=== PATIENT | male | born 1960 | race Caucasian/White ===

== ENCOUNTER 2021-09-19 05:35 | Emergency (ER) | payer OTHER ==
--- OUTSIDE RECORDS SUMMARY | 2021-09-19 05:37 | XMS REPORT | Continuity of Care Document ---
:1960 Author Organization [facility] t Address [address] [place] [address] Care Team Providers Name Role Phone Orestes Fernandes Attending Clinician Unavailable Problems This patient has no known problems. Allergies, Adverse Reactions, Alerts This patient has no known allergies or adverse reactions. Medications Ordered Filled Start Stop Current Ordering Indication Dosage Frequency Signature Comments Components Source Medication Medication Date Date Medication? Clinician (SIG) Name Name Metoprolol Metoprolol 2020-0 Yes Na Fernandes 1 tablet Common Tartrate Tartrate 7-31 with food Sp yesika 00:00: - [facility] Trazodone Trazodone 2018- Yes Na Fernandes 1 tablet Common HCl HCl 2-13 at bedtime Spirit 00:00: [facility] Lisinopril Lisinopril Yes Na Fernandes 1 tablet Common Spirit - [facility] Yes Na Fernandes take one Co mmon -1 Spirit tablet(s) - [facility] Chantix Chantix Yes Na Fernandes as Common Starting Starting directed Spi rit Month Jose Month Jose - [facility] Yes Na Fernandes take one Co mmon -1 Spirit tablet(s) - [facility] Citalopram Citalopram Yes Na Fernandes 1 tablet Common Hydrobromid Hydrobromid S pirit e e - [facility] Lisinopril Lisinopril Yes Na Fernandes 1 tablet Common Spirit - [facility] Procedures This patient has no known procedures. Encounters Start End Encounter Admission Attending Care Care Encounter Source Date/Time Date/Time Type Type Clinicians Facility Department ID 2021-04-25 Outpatient Fernandes, Na STLMLC STLMLC [id number] 2 Common 14:31:04 [facility] 2021-04-25 Outpatient Fernandes, Na STLMLC STLMLC [id number] 2 Common 13:37:39 [id number] [facility] 2021-04-25 Outpatient Fernandes, Na STLMLC STLMLC [id number] 2 Common 12:37:00 [id number] [facility] 2021-04-25 Outpatient Fernandes, Na STLMLC STLMLC [id number] 2 Common 12:36:25 [id number] [facility] 2021-04-25 Outpatient Fernandes, Na STLMLC STLMLC [id number] 2 Common 12:35:33 [id number] [facility] 2021-04-25 Outpatient Fernandes, Na STLMLC STLMLC [id number] 2 Common 12:03:58 [id number] [facility] 2021-04-25 Outpatient Fernandes, Na STLMLC STLMLC [id number] 2 Common 11:59:40 [id number] [facility] 2021-04-25 Outpatient Fernandes, Na STLMLC STLMLC [id number] 2 Common 11:33:36 [id number] [facility] 2021-04-25 Outpatient Fernandes, Na STLMLC STLMLC [id number] 2 Common 11:18:19 [id number] [facility] 2021-03-22 2021-03-22 ambulatory STLMLC STLMLC [id number] Common 00:00:00 00:00:00 [facility] 2021-03-22 2021-03-22 ambulatory STLMLC STLMLC [id number] Common 00:00:00 00:00:00 [facility] 2020-12-08 2020-12-08 Outpatient STLMLC STLMLC [id number] Common 00:00:00 00:00:00 [facility] 2020-11-08 2020-11-08 Outpatient STLMLC STLMLC [id number] Common 00:00:00 00:00:00 [facility] 2020-11-07 2020-11-07 Outpatient STLMLC STLMLC [id number] Common 00:00:00 00:00:00 [facility] 2020-09-01 2020-09-01 Outpatient STLMLC STLMLC [id number] Common 00:00:00 00:00:00 [facility] 2020-06-02 2020-06-02 Outpatient STLMLC STLMLC [id number] Common 00:00:00 00:00:00 [facility] 2020-02-08 2020-02-08 Outpatient STLMLC STLMLC [id number] Common 00:00:00 00:00:00 [facility] 2019-10-29 2019-10-29 [id number] Common 09:40:00 09:40:[address] [facility] 2019-09-29 2019-09-29 [facility] [id number] Common 12:01:00 12:01:[address] [facility] 2019-08-27 2019-08-27 [facility] [id number] Common 16:24:00 16:24:[address] [facility] 2019-07-26 2019-07-26 [facility] [id number] Common 14:22:00 14:22:[address] [facility] 2019-07-16 2019-07-16 [facility] [id number] Common 10:00:00 10:00:[address] [facility] 2019-06-17 2019-06-17 [facility] [id number] Common 11:50:00 11:50:[address] [facility] 2018-12-23 2018-12-23 [facility] [id number] Common 08:00:00 08:00:[address] [facility] 2018-06-05 2018-06-05 [facility] [id number] Common 11:15:00 11:15:[address] [facility] 2018-03-12 2018-03-12 [facility] [id number] Common 15:15:00 15:15:[address] [facility] Results This patient has no known results.
[2021-09-19 06:21] LABS: Absolute Lymphocytes (CBC) 1.1 K/uL (0.7-4.9); Hematocrit 43.8 % (39.6-49.0); Lymphocytes % 20.6 % (15.3-44.8); RBC Red Blood Cell Count 5.15 M/uL (4.33-5.43)
[2021-09-19] MEDS ORDERED: NA CHLORIDE 0.9% 500 ML ONE (06:35)
[2021-09-19 06:39] LABS: Albumin 3.4 g/dL (3.4-5.0); Bilirubin Total 0.4 mg/dL (0.2-1.0)
--- NOTE | 2021-09-19 07:29 | RAD REPORT ---
EXAM DESCRIPTION: CT - Stone Protocol - 09/19/2021 6:55 am CLINICAL HISTORY: Abdominal pain. COMPARISON: None. TECHNIQUE: Computed axial tomography of the abdomen pelvis was obtained without oral or IV contrast. Lack of IV and oral contrast limits evaluation of solid organs, bowel, and vessels. Coronal reformat dylan images were obtained and reviewed. All CT scans are performed using dose optimization technique as appropriate and may include automated exposure control or mA/KV adjustment according to patient size. FINDINGS: A renal calculus is not seen. An ureteral calculus is not noted. A bladder calculus is not present. Small low-density area within the right kidney is nonspecific but probably cyst. Small low-density area within the liver is too small to characterize by CT criteria. Spleen, pancreas and adrenals grossly normal. There is no evidence of diverticulitis. Small left inguinal hernia. 8 x 1 millimeter linear radiopaque structure within ileum. No free air. No abscess IMPRESSION: Negative for a genitourinary calculus 8 x 1 millimeter linear radiopaque structure within the ileum may represent a foreign body.
--- NOTE | 2021-09-19 08:28 | ER ---
Nurse's Notes [facility] Name: Juan Francisco Rios Age: 61 yrs Sex: Male : 1960 Arrival Date: 09/19/2021 Time: 05:36 Bed 5 Private MD: Mirna Fernandes Diagnosis: Abdominal pain, unspecified;Foreign body in small intestine, initial encounter Presentation: 09/19 05:56 Chief complaint: Patient states: RLQ that start yesterday, pain improved and pt was as6 able to sleep, pt woke up in the night with same pain and it has gotten worse. Coronavirus screen: At this time, the client does not indicate any symptoms associated with coronavirus-19. Ebola Screen: No symptoms or risks identified at this time. Initial Sepsis Screen: Does the patient meet any 2 criteria? No. Patient's initial sepsis screen is negative. Does the patient have a suspected source of infection? No. Patient's initial sepsis screen is negative. Risk Assessment: Do you want to hurt yourself or someone else? Patient reports no desire to harm self or others. Onset of symptoms was September 18, 2021 at 17:00. 05:56 Method Of Arrival: Wheelchair as6 05:56 Acuity: NAT 3 as6 Triage Assessment: 06:17 General: Appears in no apparent distress. Behavior is calm, cooperative, appropriate vc1 for age. Pain: Complains of pain in abdomen Pain does not radiate. Pain currently is 0 out of 10 on a pain scale. at worst was 10 out of 10 on a pain scale. Quality of pain is described as sharp, stabbing. Neuro: Level of Consciousness is awake, alert, obeys commands, Oriented to person, place, time, situation, Appropriate for age. Cardiovascular: Capillary refill < 3 seconds Patient's skin is warm and dry. Respiratory: Airway is patent Respiratory effort is even, unlabored, Respiratory pattern is regular, symmetrical. GI: Abdomen is round non-distended. : Denies pain with urination. Derm: No deficits noted. Musculoskeletal: No deficits noted. Historical: - Allergies: 05:59 Zoloft; as6 - Home Meds: 05:59 lisinopril Oral [Active]; Catapres Oral [Active]; as6 - PMHx: 05:59 Hypertensive disorder; as6 - PSHx: 05:59 Appendectomy; eye; ear; as6 - Immunization history:: Client reports receiving the 2nd dose of the Covid vaccine, moderna. - Social history:: Smoking status: Patient/guardian denies using tobacco, but has a distant history of tobacco abuse. Screenin:17 Abuse screen: Denies threats or abuse. Nutritional screening: No deficits noted. vc1 Tuberculosis screening: No symptoms or risk factors identified. Fall Risk None identified. Assessment: 06:18 Reassessment: See triage assessment. vc1 06:51 GI: Bowel sounds present X 4 quads. Abd is soft and non tender. vc1 07:15 Reassessment: Patient is alert, oriented x 3, equal unlabored respirations, skin aa5 warm/dry/pink. Patient denies pain at this time. Awaiting radiology results . 07:15 Reassessment: Sitting up in bed watching TV, denies any complaints. Notified of wait aa5 time. . 09:35 Reassessment: Patient is alert, oriented x 3, equal unlabored respirations, skin aa5 warm/dry/pink. Vital Signs: 05:56 BP 142 / 86; Pulse 71; Resp 15 S; Temp 98.6(O); Pulse Ox 98% on R/A; Weight 106.59 kg as6 (R); Height 5 ft. 10 in. (177.80 cm) (R); Pain 10/10; 06:51 BP 146 / 79; Pulse 67; Resp 15; Pulse Ox 98% on R/A; Pain 0/10; vc1 07:46 BP 147 / 82; Pulse 60; Resp 14 S; Pulse Ox 96% on R/A; aa5 05:56 Body Mass Index 33.72 (106.59 kg, 177.80 cm) as6 ED Course: 05:36 Patient arrived in ED. as 05:37 Mirna Fernandes MD is Private Physician. as 05:55 Brittany Santiago RN is Primary Nurse. vc1 05:59 Triage completed. as6 06:01 Arm band placed on. as6 06:12 Inserted saline lock: 20 gauge in right antecubital area, using aseptic technique. vc1 Blood collected. 06:14 Teo Grey MD is Attending Physician. kdr 06:18 Patient has correct armband on for positive identification. Pulse ox on. NIBP on. vc1 06:57 CT Stone Protocol In Process Unspecified. EDMS 07:25 Attending Physician role handed off by Teo Grey MD rn 07:25 Nadeem Woodard MD is Attending Physician. rn 08:27 Ashish Hanson MD is Referral Physician. rn 08:55 XRAY KUB In Process Unspecified. EDMS 09:35 No provider procedures requiring assistance completed. IV discontinued, intact, aa5 bleeding controlled, No redness/swelling at site. Pressure dressing applied. Administered Medications: 06:31 Drug: NS 0.9% 500 ml Route: IV; Rate: bolus; Site: right antecubital; vc1 07:15 Follow up: IV Status: Completed infusion; IV Intake: 500ml aa5 Intake: 07:15 IV: 500ml; Total: 500ml. aa5 Outcome: 08:28 Discharge ordered by MD. rn 09:35 Discharged to home ambulatory. aa5 09:35 Condition: stable 09:35 Discharge instructions given to patient, Instructed on discharge instructions, follow up and referral plans. medication usage, Demonstrated understanding of instructions, follow-up care, medications, Prescriptions given X 2. 09:41 Patient left the ED. iw Signatures: Dispatcher [employer] EDIA Teo Grey MD MD kdr Martinez, Amelia as Char Steinberg, CEE RN iw Nadeem Woodard MD MD rn Calderon, Audri, RN RN aa5 Junaid Cody RN RN as6 Brittany Santiago, RN RN vc1 Corrections: (The following items were deleted from the chart) 06:01 05:59 PMHx: pulled muscle in arm; as6 as6
--- NOTE | 2021-09-19 08:28 | EDPHYS ---
Physician Documentation [facility] Name: Juan Francisco Rios Age: 61 yrs Sex: Male : 1960 Arrival Date: 09/19/2021 Time: 05:36 Bed 5 Private MD: Mirna Fernandes ED Physician Nadeem Woodard HPI: 09/19 06:50 This 61 yrs old Male presents to ER via Wheelchair with complaints of Abdominal Pain. kdr 06:50 Patient states that he has had right lower quadrant pain since yesterday. Patient has kdr not had pain like this previously. The pain had resolved through the day yesterday but then recurred this morning. Patient has had a prior appendectomy but no history of kidney stones. Onset: The symptoms/episode began/occurred yesterday. Severity of symptoms: At their worst the symptoms were mild moderate just prior to arrival, in the emergency department the symptoms are unchanged. The patient has not experienced similar symptoms in the past, Patient had not had this pain prior to yesterday. The patient has not recently seen a physician. Historical: - Allergies: 05:59 Zoloft; as6 - Home Meds: 05:59 lisinopril Oral [Active]; Catapres Oral [Active]; as6 - PMHx: 05:59 Hypertensive disorder; as6 - PSHx: 05:59 Appendectomy; eye; ear; as6 - Immunization history:: Client reports receiving the 2nd dose of the Covid vaccine, moderna. - Social history:: Smoking status: Patient/guardian denies using tobacco, but has a distant history of tobacco abuse. ROS: 06:50 Constitutional: Negative for fever, chills, and weight loss, Eyes: Negative for injury, kdr pain, redness, and discharge, ENT: Negative for injury, pain, and discharge, Neck: Negative for injury, pain, and swelling, Cardiovascular: Negative for chest pain, palpitations, and edema, Respiratory: Negative for shortness of breath, cough, wheezing, and pleuritic chest pain, Back: Negative for injury and pain, : Negative for injury, bleeding, discharge, and swelling, MS/Extremity: Negative for injury and deformity, Skin: Negative for injury, rash, and discoloration, Neuro: Negative for headache, weakness, numbness, tingling, and seizure activity. Psych: Negative for depression, anxiety, suicide ideation, homicidal ideation, and hallucinations, Allergy/Immunology: Negative for hives, rash, and allergies, Endocrine: Negative for neck swelling, polydipsia, polyuria, polyphagia, and marked weight changes, Hematologic/Lymphatic: Negative for swollen nodes, abnormal bleeding, and unusual bruising. 06:50 Abdomen/GI: Positive for abdominal pain, nausea, Negative for diarrhea, constipation, abdominal cramps, abdominal distension, anorexia, black/tarry stool, rectal pain, rectal bleeding. Exam: 06:50 Constitutional: This is a well developed, well nourished patient who is awake, alert, kdr and in no acute distress. Head/Face: Normocephalic, atraumatic. Eyes: Pupils equal round and reactive to light, extra-ocular motions intact. Lids and lashes normal. Conjunctiva and sclera are non-icteric and not injected. Cornea within normal limits. Periorbital areas with no swelling, redness, or edema. Neck: Trachea midline, no thyromegaly or masses palpated, and no cervical lymphadenopathy. Supple, full range of motion without nuchal rigidity, or vertebral point tenderness. No Meningismus. Chest/axilla: Normal chest wall appearance and motion. Nontender with no deformity. No lesions are appreciated. Cardiovascular: Regular rate and rhythm with a normal S1 and S2. No gallops, murmurs, or rubs. Normal PMI, no JVD. No pulse deficits. Respiratory: Lungs have equal breath sounds bilaterally, clear to auscultation and percussion. No rales, rhonchi or wheezes noted. No increased work of breathing, no retractions or nasal flaring. Abdomen/GI: Soft, non-tender, with normal bowel sounds. No distension or tympany. No guarding or rebound. No evidence of tenderness throughout. Back: No spinal tenderness. No costovertebral tenderness. Full range of motion. Skin: Warm, dry with normal turgor. Normal color with no rashes, no lesions, and no evidence of cellulitis. MS/ Extremity: Pulses equal, no cyanosis. Neurovascular intact. Full, normal range of motion. Neuro: Awake and alert, GCS 15, oriented to person, place, time, and situation. Cranial nerves II-XII grossly intact. Motor strength 5/5 in all extremities. Sensory grossly intact. Cerebellar exam normal. Normal gait. Psych: Awake, alert, with orientation to person, place and time. Behavior, mood, and affect are within normal limits. Vital Signs: 05:56 BP 142 / 86; Pulse 71; Resp 15 S; Temp 98.6(O); Pulse Ox 98% on R/A; Weight 106.59 kg as6 (R); Height 5 ft. 10 in. (177.80 cm) (R); Pain 10/10; 06:51 BP 146 / 79; Pulse 67; Resp 15; Pulse Ox 98% on R/A; Pain 0/10; vc1 07:46 BP 147 / 82; Pulse 60; Resp 14 S; Pulse Ox 96% on R/A; aa5 05:56 Body Mass Index 33.72 (106.59 kg, 177.80 cm) as6 MDM: 06:50 Data reviewed: vital signs, nurses notes, lab test result(s), radiologic studies. kdr Counseling: I had a detailed discussion with the patient and/or guardian regarding: the historical points, exam findings, and any diagnostic results supporting the discharge/admit diagnosis, lab results, radiology results, the need for outpatient follow up. 07:26 Patient medically screened. rn 08:25 Differential Diagnosis kidney stone, infection, foreign body, gallbladder. Response to rn treatment: the patient's symptoms have resolved after treatment, the patient's condition has returned to base line, the patient is now symptom free, and as a result, I will discharge patient. Special discussion: Based on the patient's Hx, exam, and Dx evaluation, there is no indication for emergent surgery or inpatient Tx. It is understood by the patient/guardian that if the Sx's persist or worsen they need to return immediately for re-evaluation. I discussed with the patient/guardian in detail that at this point there is no indication for admission to the hospital. It is understood, however, that if the symptoms persist or worsen the patient needs to return immediately for re-evaluation. Based on the history and exam findings, there is no indication for further emergent testing or inpatient evaluation. I discussed with the patient/guardian the need to see the general surgeon for further evaluation of the symptoms. ED course: CT shows undefined linear foreign body in ileum, no perforation or free air, unclear if this is etiology or coincidental. Pt does not recall eating anythign with bone or possibly swallowing foreign body. Currently pain free without pain medication. Feels good. Consulted with Dr. Hanson, would like KAYLAH to see if can see foreign body for outpt f/u, states thinks pt will pass this thing, and will see him in clinic this week. Pt given return precautions and understands. . 09:38 ED course: Pt now remembers that was grilling and cleaned with wire brush, foreign body rn may be part of wire brush. . 09/19 05:57 Order name: CBC with Diff; Complete Time: 07:26 bb 09/19 05:57 Order name: CMP; Complete Time: 07:26 bb 09/19 05:57 Order name: Lipase; Complete Time: 07:26 bb 09/19 06:25 Order name: CT Stone Protocol; Complete Time: 07:40 kdr 09/19 08:22 Order name: XRAY FABYB; Complete Time: 09:11 rn 09/19 05:57 Order name: IV Saline Lock; Complete Time: 06:16 bb 09/19 05:57 Order name: Labs collected and sent; Complete Time: 06:16 bb Administered Medications: 06:31 Drug: NS 0.9% 500 ml Route: IV; Rate: bolus; Site: right antecubital; vc1 07:15 Follow up: IV Status: Completed infusion; IV Intake: 500ml aa5 Disposition Summary: 09/19/21 08:28 Discharge Ordered Location: Home rn Problem: new rn Symptoms: are resolved rn Condition: Stable rn Diagnosis - Abdominal pain, unspecified rn - Foreign body in small intestine, initial encounter rn Followup: rn - With: Ashish Hanson MD - When: 1 - 2 days - Reason: Recheck today's complaints, Re-evaluation by your physician Discharge Instructions: - Discharge Summary Sheet rn - Abdominal Pain, Adult rn - Swallowed Foreign Body, Adult rn Forms: - Medication Reconciliation Form rn - Thank You Letter rn - Antibiotic heel burnisher - Prescription Opioid Use rn Prescriptions: - Flagyl 500 mg Oral Tablet - take 1 tablet by ORAL route every 8 hours for 10 days; 30 tablet; Refills: 0, rn Product Selection Permitted - Cipro 500 mg Oral Tablet - take 1 tablet by ORAL route every 12 hours for 10 days; 20 tablet; Refills: 0, rn Product Selection Permitted Signatures: Dispatcher [employer] Teo Marin MD MD kdr Ballard, Brenda RN RN bb Nadeem Woodard MD MD rn Slawson, Ashby, RN RN as6 Brittany Santiago RN RN vc1 Thao Sorensen RN aa5 Corrections: (The following items were deleted from the chart) 06:01 05:59 PMHx: pulled muscle in arm; as6 as6
--- NOTE | 2021-09-19 09:00 | RAD REPORT ---
EXAM DESCRIPTION: RAD - Abdomen 1 View (KUB) - 09/19/2021 8:53 am CLINICAL HISTORY: Abdomen pain FINDINGS: The bowel gas pattern is unremarkable. The linear radiopaque structure seen within the ileum on the CT scan same date is not clearly visuali zed on this examination
[2021-09-19 09:53] VITALS: TEMP 98.6
[2021-09-19 09:56] VITALS: BP 147/82; O2SAT 96
== END 2021-09-19 09:41 | disposition home or self-care (01) ==
LOC: ER 05:35
DX: T18.3XXA Foreign body in small intestine, initial encounter (principal); I10 Essential (primary) hypertension; Z88.8 Allergy status to other drugs, medicaments and biological substances
CPT/HCPCS: 85025; 36415; 83690; 80053; 76377; 74176; 74018; 96360; 99284; J7040